=== PATIENT | male | born 1955 | race Caucasian/White ===

== ENCOUNTER 2020-03-17 14:17 | Outpatient (CLI) | payer MEDICAID ==
[2020-03-21] MEDS ORDERED: IBUP-1902 PO (10:38)
== END 2020-03-17 23:59 | disposition home or self-care (01) ==
LOC: STAR 14:17
PROVIDERS: ATTEND Anesthesiology
DX: Z01.818 Encounter for other preprocedural examination (principal); Z11.59 Encounter for screening for other viral diseases
CPT/HCPCS: 36415; 87635

== ENCOUNTER 2020-03-22 08:01 | Observation (INO) | payer MEDICAID ==
[2020-03-21 10:56] LABS: BASOPHILS # (AUTO) 0.03 x10^3/uL (0-0.1); BASOPHILS % (AUTO) 0 % (0-1); EOSINOPHILS # (AUTO) 0.27 x10^3/uL (0-0.4); EOSINOPHILS % (AUTO) 3 % (1-7); LYMPHOCYTES # (AUTO) 2.73 x10^3/uL (1-3.4); LYMPHOCYTES % (AUTO) 33 % (22-44); MD NO; MEAN CORPUSCULAR HEMOGLOBIN 31.4 pg (27.5-34.5); MEAN CORPUSCULAR HGB CONC 33.1 g/dL (33.2-36.2); MEAN PLATELET VOLUME 7.1 fL (7.4-10.4); MONOCYTES # (AUTO) 0.52 x10^3/uL (0.2-0.8); MONOCYTES % (AUTO) 6 % (2-9); NEUTROPHILS # (AUTO) 4.76 x10^3/uL (1.8-6.8); NEUTROPHILS % (AUTO) 57 % (42-75); PLATELET COUNT 343 x10^3/uL (130-400); RED BLOOD COUNT 5.29 x10^6/uL (4.38-5.82); RED CELL DISTRIBUTION WIDTH 13.4 % (9.4-14.8)
[2020-03-21 11:05] LABS: INTERNATIONAL NORMALIZED RATIO 1.05 (0.93-1.1); PROTHROMBIN TIME 10.8 Seconds (9.6-11.5)
[2020-03-21 11:07] LABS: ALANINE AMINOTRANSFERASE 24 U/L (12-78); ALBUMIN 3.5 g/dL (3.4-5.0); ANION GAP 4 mmol/L (5-15); CALCIUM 9.4 mg/dL (8.5-10.1); CHLORIDE 108 mmol/L (98-107)
[2020-03-21 11:09] LABS: ALKALINE PHOSPHATASE 126 U/L (45-117); BILIRUBIN,TOTAL 0.5 mg/dL (0.2-1.0); CREATININE 0.91 mg/dL (0.7-1.3); TOTAL PROTEIN 7.6 g/dL (6.4-8.2)
[~2020-03-22] VITALS: Ht 182.9 cm; Wt 82.7 kg
[~2020-03-22 08:01] MED LIST: EPINEPHRINE 1 MG/ML, 1ML ONE; IBUP-1902 PO; KETOROLAC 60 MG/2 ML ONE; ROPIvacaine/PF 0.5%, 20 ML ONE; ROPIvacaine/PF 0.5%, 30 ML ONE; SODIUM CHLORIDE 0.9% 50 ML ONE; TRANEXAMIC ACID 100 MG/ML, 10ML ONE; VANCOMYCIN 1,000 MG ONE
[2020-03-22] MEDS ORDERED: DIPHENHYDRAMINE 25 MG CAPSULE PO PRN (08:30)
[2020-03-22] MEDS ORDERED: BISACODYL 10 MG SUPP PR PRN (08:30)
[2020-03-22] MEDS ORDERED: ZOLPIDEM 5MG TABLET PO PRN (08:30)
[2020-03-22] MEDS ORDERED: ONDANSETRON 2MG/ML, 2ML IV PRN (08:30)
[2020-03-22] MEDS ORDERED: OXYcodone IR 5MG TABLET PO PRN (08:30)
[2020-03-22] MEDS ORDERED: SENNA/DOCUSATE TABLET PO PRN (08:30)
[2020-03-22] MEDS ORDERED: HYDROcodone/APAP 5/325 TABLET PO PRN (08:30)
[2020-03-22] MEDS ORDERED: ONDANSETRON 4 MG TABLET PO PRN (08:30)
[2020-03-22] MEDS ORDERED: MAGNESIUM HYDROXIDE 8%, 30ML UDC PO PRN (08:30)
[2020-03-22] MEDS ORDERED: ACETAMINOPHEN 650 MG/20.3 ML UDC PO PRN (08:30)
[2020-03-22] MEDS ORDERED: CHLORHEXIDINE 15 ML UDC MM STA (08:39)
[2020-03-22] MEDS ORDERED: ACETAMINOPHEN 500 MG TABLET PO STA (08:40)
[2020-03-22] MEDS ORDERED: GABAPENTIN 300 MG CAPSULE PO STA (08:40)
[2020-03-22 08:41] VITALS: BP 176/107
[2020-03-22] MEDS ORDERED: LACTATED RINGERS 1,000 ML IV ONE (08:52)
[2020-03-22] MEDS: DOCUSATE 100 MG CAPSULE PO SCH ×2 (09:00→21:15)
[2020-03-22] MEDS ORDERED: SUCCINYLCHOLINE 20 MG/ML, 10ML ONE (09:13)
[2020-03-22] MEDS ORDERED: PROPOFOL 10 MG/ML, 20ML ONE (09:13)
[2020-03-22] MEDS ORDERED: CEFAZOLIN 1,000 MG ONE (09:13)
[2020-03-22] MEDS ORDERED: NEOSTIGMINE 1 MG/ML, 10ML ONE (09:13)
[2020-03-22] MEDS ORDERED: GLYCOPYRROLATE 0.2MG/1ML, 5ML ONE (09:13)
[2020-03-22] MEDS ORDERED: DEXAMETHASONE 4 MG/ML, 1ML ONE (09:13)
[2020-03-22] MEDS ORDERED: FENTANYL PF 100 MCG/2ML ONE ×2 (09:13→11:42)
[2020-03-22] MEDS ORDERED: ROCURONIUM 10MG/ML,5ML ONE (09:13)
[2020-03-22] MEDS ORDERED: ONDANSETRON 2MG/ML, 2ML ONE (09:13)
[2020-03-22] MEDS ORDERED: MIDAZOLAM 1 MG/ML, 2ML ONE (09:13)
[2020-03-22] MEDS ORDERED: LABETALOL 5MG/ML, 20ML ONE (09:21)
[2020-03-22] MEDS ORDERED: LABETALOL 5MG/ML, 20ML IVPush ONE (09:30)
[2020-03-22] MEDS ORDERED: SUGAMMADEX 200 MG/2 ML IVPush ONE (10:14)
[2020-03-22] MEDS ORDERED: hydrALAzine 20 MG/ML, 1ML ONE (10:14)
[2020-03-22] MEDS ORDERED: PROMETHAZINE 25 MG/ML, 1ML IVPush PRN (11:00)
[2020-03-22] MEDS ORDERED: hydrALAzine 20 MG/ML, 1ML IV PRN (11:00)
[2020-03-22] MEDS ORDERED: MEPERIDINE/PF 25MG/0.5ML IVPush PRN (11:00)
[2020-03-22] MEDS ORDERED: OXYcodone 5 MG/5 ML ORAL.SOL UDC PO PRN (11:00)
[2020-03-22] MEDS ORDERED: LABETALOL 5MG/ML, 20ML IV PRN (11:00)
[2020-03-22] MEDS ORDERED: PROMETHAZINE 25 MG/ML, 1ML ONE (11:41)
[2020-03-22] MEDS: FENTANYL PF 100 MCG/2ML IV PRN ×4 (11:46→12:15)
[2020-03-22] MEDS ORDERED: HYDROmorphone 1 MG/ML, 1ML INJ ONE (12:23)
[2020-03-22] MEDS: HYDROmorphone 1 MG/ML, 1ML INJ IVPush PRN ×2 (12:24→12:37)
[2020-03-22] MEDS ORDERED: CEFAZOLIN PMX 2GM/50ML 50 ML IVPB SCH (14:30)
[2020-03-22] MEDS: NS + 20MEQ KCL 1,000 ML IV SCH (15:53)
[2020-03-22] MEDS: CEFAZOLIN PMX 2GM/50ML 50 ML IVPB SCH (18:02)
[2020-03-22] MEDS: ASPIRIN 81 MG TABLET EC PO SCH (18:02)
[2020-03-22 20:35] VITALS: BP 121/72
[2020-03-22 23:43] VITALS: BP 108/69
[2020-03-23] MEDS: CEFAZOLIN PMX 2GM/50ML 50 ML IVPB SCH (01:59)
[2020-03-23 03:36] VITALS: BP 138/77
[2020-03-23] MEDS: NS + 20MEQ KCL 1,000 ML IV SCH (03:47)
[2020-03-23] MEDS: ASPIRIN 81 MG TABLET EC PO SCH (05:58)
[2020-03-23] MEDS ORDERED: DEXAMETHASONE 4 MG/ML, 1ML IVPush SCH (06:00)
[2020-03-23 07:08] VITALS: BP 130/77
[2020-03-23] MEDS: DOCUSATE 100 MG CAPSULE PO SCH (09:05)
== END 2020-03-23 11:04 | disposition home or self-care (01) ==
LOC: OUT 08:01 → 4NE 13:31 → OUT 20:48 → 4NE 20:52
PROVIDERS: ADMIT Orthopaedic Surgery; ATTEND Orthopaedic Surgery
DX: M16.11 Unilateral primary osteoarthritis, right hip (principal); I10 Essential (primary) hypertension; F17.200 Nicotine dependence, unspecified, uncomplicated; Z79.899 Other long term (current) drug therapy
CPT/HCPCS: 27130; 36415; 72170; 73502; 76000; 80053; 83036; 85014; 85018; 85025; 85610; 85730; 87081; 93005; 96361; 96365; 96366; 96375; 97161; 97166; C1713; C1776; G0378; J0171; J0330; J0360; J0690; J1100; J1170; J1885; J2250; J2405; J2550; J2704; J2710; J2795; J3010; J3370; J3480; J7120